=== PATIENT | female | born 1990 | race Caucasian/White ===

== ENCOUNTER 2021-01-18 08:25 | Emergency (ER) | payer MEDICAID ==
[~2021-01-18] VITALS: Ht 160 cm; Wt 59.9 kg
[2021-01-18 08:45] VITALS: BP_SYST 105
--- NOTE | 2021-01-18 08:45 | NUR ---
Patient to ER bed 5 to gown for evaluation. Side rails up. Report given to Marielena DOWNING.
--- NOTE | 2021-01-18 08:49 | NUR ---
Dr Melendez in room for exam
--- NOTE | 2021-01-18 08:53 | NUR ---
Pt comes in with avinash lower abdominal pain radiating to epigatric area for the past 24 hrs, "feels tight" associated with nausea. Reports last menstraul 11/20 that lasted 12 days. Currently -unsure how long, has not seen an OB MD yet. Pt in NAD. Resp evenand unlabored, on RA @99%. Abd flat,soft, tender to touch. Denies dysuria, no fevers/chills. skin w/d/i. States pmh of thyroid issues with recent med dosage change.
[2021-01-18 09:22] LABS: BASOPHILS % (AUTO) 0.3 % (0.0-2.0); EOSINOPHILS % (AUTO) 0.8 % (0.0-4.0); HEMATOCRIT 31.6 % (36-48); HEMOGLOBIN 10.2 g/dL (12.0-16.0); LYMPHOCYTES # (AUTO) 1.2 K/uL (1.0-5.5); MEAN CORPUSCULAR HEMOGLOBIN 22 pg (27-31); MEAN CORPUSCULAR HGB CONC 32 % (32-36); MEAN CORPUSCULAR VOLUME 69 fL (79.0-98.0); MONOCYTES # (AUTO) 0.4 K/uL (0.0-1.0); MONOCYTES % (AUTO) 8.6 % (1.7-9.3); NEUTROPHILS # (AUTO) 3.1 K/uL (1.8-7.7); NEUTROPHILS % (AUTO) 65.3 % (40.0-70.0); PLATELET COUNT (AUTO) 227 K/uL (130-430); RED CELL DISTRIBUTION WIDTH 20.8 % (9.0-15.0); WHITE BLOOD COUNT (AUTO) 4.8 K/uL (4.8-10.8)
--- NOTE | 2021-01-18 09:29 | NUR ---
PT BACK FROM [facility] VIA W/C.
[2021-01-18 09:32] LABS: CREATININE 0.69 mg/dL (0.55-1.30); POTASSIUM 3.6 mmol/L (3.5-5.1)
[2021-01-18 10:04] LABS: ALBUMIN 3.2 g/dL (3.4-4.8); THYROID STIMULATING HORMONE 3.05 uIu/mL (0.36-3.74); TOTAL BILIRUBIN 0.5 mg/dL (0.0-1.0)
--- NOTE | 2021-01-18 10:05 | NUR ---
DC WITH [facility], RX PRESCRIBED FOR ZOFRAN, INFORMED TO GO TO PHARM TO HAND DECORATOR. PT LEFT WITH MOM, STABLEGAIT, VSS. PATIENT AWARE TO F/U WITH OB-PROPERTY CLERK AND CONT TAKING PILLS.
[2021-01-18 10:16] VITALS: BP_SYST 109
[2021-01-18] MEDS ORDERED: ONDA-8 TL (10:22)
== END 2021-01-18 10:16 | disposition home or self-care (01) ==
LOC: SED 08:25
DX: O26.891 Other specified pregnancy related conditions, first trimester (principal); R10.30 Lower abdominal pain, unspecified; R53.1 Weakness; Z79.899 Other long term (current) drug therapy; Z3A.01 Less than 8 weeks gestation of pregnancy
CPT/HCPCS: 36415; 76801; 80053; 81002; 81025; 84443; 84702; 85025; 99284

== ENCOUNTER 2022-06-07 18:32 | Emergency (ER) | payer OTHER, MEDICAID ==
[~2022-06-07] VITALS: Ht 160 cm; Wt 65.8 kg
[~2022-06-07 18:32] MED LIST: ONDA-8 TL
[2022-06-07 18:35] VITALS: BP_SYST 113
--- NOTE | 2022-06-07 18:35 | NUR ---
Patient triaged and placed in waiting room. VSS and patient appears in no acute distress at this time. Accompanied by SPOUSE, awaiting available bed, and MD notified of need for MSE.
--- NOTE | 2022-06-07 18:46 | NUR ---
COVID AND INFLUENZA SWABS OBTAINED, LABELED AND TAKEN TO LAB
--- NOTE | 2022-06-07 19:00 | NUR ---
Dr Lara evaluating patient in the triage room
[2022-06-07] MEDS ORDERED: ALBUTEROL SULFATE 0.083% 2.5 MG/3 ML VIAL.NEB INH ONE (19:15)
[2022-06-07] MEDS ORDERED: INHA1EAC MC (19:56)
[2022-06-07] MEDS ORDERED: ALBU2.5V7 INH (19:56)
[2022-06-07] MEDS ORDERED: ALBMDI INH (19:56)
[2022-06-07] MEDS ORDERED: ACET-2634 PO (19:56)
[2022-06-07 21:32] VITALS: BP_SYST 113
--- NOTE | 2022-06-07 21:33 | NUR ---
Patient given written and verbal discharge instructions and verbalizes understanding. ER MD discussed with patient the results and treatment provided. Patient in stable condition. ID arm band removed. Rx of Tylenol, Albuterol inhalor given. Patient educated on pain management and to follow up with PMD. Pain Scale 2/10 . Opportunity for questions provided and answered. Medication side effect fact sheet provided.
== END 2022-06-07 21:32 | disposition home or self-care (01) ==
LOC: SED 18:32
DX: J40 Bronchitis, not specified as acute or chronic (principal); R06.02 Shortness of breath; R05.9 Cough, unspecified; J34.89 Other specified disorders of nose and nasal sinuses; Z79.899 Other long term (current) drug therapy; Z20.822 Contact with and (suspected) exposure to COVID-19
CPT/HCPCS: 36415; 71045; 94640; 94760; 99284; 87804 ×2; 87426; J7613

== ENCOUNTER 2023-04-17 18:02 | Emergency (ER) | payer MEDICAID, OTHER ==
[~2023-04-17] VITALS: Ht 160 cm; Wt 63.5 kg
[~2023-04-17 18:02] MED LIST changes: +ACET-2634 PO; +ALBMDI INH; +ALBU2.5V7 INH; +INHA1EAC MC
[2023-04-17 18:15] VITALS: BP_SYST 129; PULSE 60; RESP 18; TEMP 98.4; O2SAT 94
[2023-04-17 19:02] LABS: INFLUENZA TYPE A Negative (NEGATIVE); INFLUENZA TYPE B NEGATIVE (NEGATIVE)
[2023-04-17 19:44] LABS: BASOPHILS # (AUTO) 0.1 K/uL (0.0-0.2); BASOPHILS % (AUTO) 1.2 % (0.0-2.0); EOSINOPHILS # (AUTO) 0.1 K/uL (0.0-0.4); EOSINOPHILS % (AUTO) 1.7 % (0.0-4.0); HEMATOCRIT 31.7 % (36-48); HEMOGLOBIN 9.7 g/dL (12.0-16.0); LYMPHOCYTES # (AUTO) 1.8 K/uL (1.0-5.5); LYMPHOCYTES % (AUTO) 36.2 % (20.5-51.5); MEAN CORPUSCULAR HEMOGLOBIN 21 pg (27-31); MEAN CORPUSCULAR HGB CONC 31 % (32-36); MEAN CORPUSCULAR VOLUME 67 fL (79.0-98.0); MONOCYTES # (AUTO) 0.6 K/uL (0.0-1.0); MONOCYTES % (AUTO) 11.6 % (1.7-9.3); NEUTROPHILS # (AUTO) 2.4 K/uL (1.8-7.7); NEUTROPHILS % (AUTO) 49.3 % (40.0-70.0); PLATELET COUNT (AUTO) 218 K/uL (130-430); RED BLOOD CELL COUNT(AUTO) 4.71 MIL/uL (4.2-6.2); RED CELL DISTRIBUTION WIDTH 20.2 % (9.0-15.0); WHITE BLOOD COUNT (AUTO) 4.9 K/uL (4.8-10.8)
[2023-04-17 20:00] LABS: ANION GAP 5 (5-15); CALCIUM 9.5 mg/dL (8.4-11.0); CARBON DIOXIDE 27 mmol/L (23-29); CHLORIDE 103 mmol/L (98-107); CREATININE 0.85 mg/dL (0.55-1.30); GFR AFRICAN AMERICAN 98 mL/min (>90); GLUCOSE 90 mg/dL (74-106); POTASSIUM 4.1 mmol/L (3.5-5.1); SODIUM SERUM 135 mmol/L (136-145); UREA NITROGEN, BLOOD 14 mg/dL (8-21)
[2023-04-17] MEDS ORDERED: NACL 0.9% 1,000 ML IV ONE (20:00)
[2023-04-17 20:01] LABS: BILIRUBIN,URINE NEGATIVE (NEGATIVE); BLOOD, URINE NEGATIVE (NEGATIVE); CLARITY/URINE SL CLOUDY (CLEAR); COLOR,URINE YELLOW (YELLOW); GLUCOSE,URINE NEGATIVE (NEGATIVE); KETONES,URINE NEGATIVE (NEGATIVE); LEUKOCYTE ESTERASE ,URINE NEGATIVE (NEGATIVE); NITRITE, URINE NEGATIVE (NEGATIVE); PROTEIN URINE NEGATIVE (NEGATIVE)
[2023-04-17 20:05] LABS: GFR NON AFRICAN-AMERICAN 81 mL/min (>90)
[2023-04-17 20:09] LABS: ALANINE AMINOTRANSFERASE 23 U/L (12-78); ALBUMIN 3.2 g/dL (3.4-4.8); ASPARTATE AMINOTRANSFERASE 17 U/L (10-37); BILIRUBIN,DIRECT 0.1 mg/dL (0.0-0.3); TOTAL BILIRUBIN 0.3 mg/dL (0.0-1.0); TOTAL PROTEIN, SERUM 7.6 g/dL (6.4-8.3)
[2023-04-17] MEDS ORDERED: iohexoL 350 mgI/mL, 100 ML INFUS..BTL IV ONE (21:50)
[2023-04-17 22:15] VITALS: BP_SYST 108; PULSE 70; RESP 17; TEMP 97; O2SAT 100
[2023-04-17 22:36] LABS: ANISOCYTOSIS 2+; HYPOCHROMASIA 1+
[2023-04-17 22:37] LABS: OVALOCYTES MODERATE
== END 2023-04-17 22:15 | disposition home or self-care (01) ==
LOC: SED 18:02
DX: D53.9 Nutritional anemia, unspecified (principal); R42 Dizziness and giddiness; R53.1 Weakness; R51.9 Headache, unspecified; Z79.899 Other long term (current) drug therapy; Z20.822 Contact with and (suspected) exposure to COVID-19
CPT/HCPCS: 99284; 96360; 70450; 87426; 80076; 80048; 81001; 82962; 85025; 84484; 36415; 93005; 76376; 81025; 81003; 87804 ×2; J7030; Q9967

== ENCOUNTER 2023-10-27 16:25 | Emergency (ER) | payer MEDICAID ==
[~2023-10-27] VITALS: Ht 160 cm; Wt 63.5 kg
[~2023-10-27 16:25] MED LIST changes: -INHA1EAC MC; +INHA1SPA MC
[2023-10-27 16:39] VITALS: BP_SYST 122; PULSE 95; RESP 18; TEMP 98.3; O2SAT 100
[2023-10-27] MEDS: MORPHINE 4 MG INJ. 4 MG/ML VIAL IVP ONE (17:31)
[2023-10-27] MEDS: ONDANSETRON HCL 4 MG/2 ML VIAL IVP ONE (17:31)
[2023-10-27 18:09] LABS: BILIRUBIN,URINE NEGATIVE (NEGATIVE); BLOOD, URINE NEGATIVE (NEGATIVE); CLARITY/URINE CLEAR (CLEAR); COLOR,URINE YELLOW (YELLOW); GLUCOSE,URINE NEGATIVE (NEGATIVE); KETONES,URINE NEGATIVE (NEGATIVE); LEUKOCYTE ESTERASE ,URINE NEGATIVE (NEGATIVE); NITRITE, URINE NEGATIVE (NEGATIVE); PROTEIN URINE NEGATIVE (NEGATIVE); UROBILINOGEN,URINE 0.2 (0.2-1.0)
[2023-10-27] MEDS: KETOROLAC TROMETHAMINE 30 MG VIAL IM ONE (18:35)
[2023-10-27] MEDS ORDERED: ACET-2634 PO (19:01)
[2023-10-27] MEDS ORDERED: TRAM50TA2 PO (19:01)
[2023-10-27] MEDS ORDERED: IBUP-1969 PO (19:01)
[2023-10-27 19:31] VITALS: BP_SYST 105; PULSE 63; RESP 18; TEMP 97.5; O2SAT 99
== END 2023-10-27 19:31 | disposition home or self-care (01) ==
LOC: SED 16:25
DX: M54.50 Low back pain, unspecified (principal)
CPT/HCPCS: 99285; 96374; 72131; 96375; 81001; 81025; 81003; J1885; J2405; J2270